=== PATIENT | female | born 1960 | race Caucasian/White ===

== ENCOUNTER → 2023-09-20 | Outpatient (CLI) | payer SELFPAY, OTHER ==
--- NOTE | 2023-09-20 12:30 | MRI_ITS ---
STUDY: MRI LUMBAR SPINE WITHOUT CONTRAST REASON FOR EXAM: Female, 62 years old. Pain -- L4-5 TECHNIQUE: Standardized fat and water weighted pulse sequences were obtained in the sagittal and axial planes. COMPARISON: X-ray 09/08/2023 FINDINGS: T12-L1: Mild bilobed disc protrusion produces mild spinal stenosis and mild bilateral neural foraminal stenosis. Normal lumbar lordosis. There is no substantial scoliosis. Normal conus medullaris that terminates at the T12/L1. Prominent hemangioma in the posterior aspect of the L1 vertebral body. Acute microtrabecular stress reaction of the pedicles of L5. L1-2: 2 mm retrolisthesis of L1 on L2 with a mild bilobed disc protrusion produces moderate spinal stenosis and mild bilateral neural foraminal stenosis. L2-3: Moderate bilobed disc protrusion produces moderate spinal stenosis and moderate bilateral neural foraminal stenosis. L3-4: Mild broad disc protrusion produces mild spinal stenosis and mild bilateral neural foraminal stenosis. L4-5: Moderate bilateral facet hypertrophy and ligament flavum hypertrophy. 2 mm of anterolisthesis of L4 and L5 with a moderate broad disc protrusion produces moderate spinal stenosis and moderate bilateral neural foraminal stenosis. L5-S1: Moderate bilateral facet hypertrophy and ligament flavum hypertrophy. Mild broad disc protrusion produces mild spinal stenosis and mild bilateral neural foraminal stenosis. Normal visualized sacral ala. Moderate friction related edema in the posterior subcutaneous fat. MRI/Spine Lumbar (Routine) IMPRESSION: Multilevel degenerative changes, as described above. Electronically Signed: Noel Combs MD at 0:24 EDT ,
== END | disposition home or self-care (01) ==
PROVIDERS: Referring Provider Orthopaedic Surgery; Visit Provider Orthopaedic Surgery
DX: M54.50 Low back pain, unspecified (principal)
CPT/HCPCS: 72148